=== PATIENT | female | born 1980 | race Two or more races ===

== ENCOUNTER 2019-12-03 11:42 | Emergency (ER) | payer MEDICAID, OTHER ==
[~2019-12-03] VITALS: Ht 152.4 cm; Wt 76.7 kg
[2019-12-03 11:54] VITALS: BP 105/55
[2019-12-03 12:54] LABS: Basophils # (auto) 0 uL; Basophils % (auto) 0.3 % (0.0-2.0); Eosinophils # (auto) 0.1 uL; Monocytes # (auto) 0.4 uL; Nucleated Red Blood Cells % 0.1 %
[2019-12-03 12:56] LABS: Eosinophils % (auto) 2.1 % (0.0-7.0); Hematocrit 37.8 % (36.0-46.0); Hemoglobin 12.2 g/dL (12.2-16.2); Lymphocytes # (auto) 1.2 uL; Mean Corpuscular Hemoglobin 25.3 pg (28.0-32.0); Mean Corpuscular Hgb Conc. 32.3 g/dL (32.0-36.0); Mean Corpuscular Volume 78.2 fL (80.0-100.0); Monocytes % (auto) 6.4 % (0.0-12.0); Neutrophils # (auto) 4.5 uL; Neutrophils % (auto) 72.2 % (37.0-80.0); Platelet Count (auto) 292 10^3/uL (140-450); Red Blood Cells 4.84 10^6/uL (4.0-5.20); Red Cell Distribution Width 14.8 % (11.8-14.3); White Blood Cell 6.3 10^3/uL (4.4-10.8)
[2019-12-03 13:24] LABS: Albumin 3.4 g/dL (3.4-5.0); BUN/Creatinine Ratio 12.5; Calcium 8.8 mg/dL (8.5-10.1); Potassium 3.7 mmol/L (3.5-5.1)
[2019-12-03 13:27] LABS: Bilirubin, Total 0.2 mg/dL (0.2-1.0); Total Protein 7.6 g/dL (6.4-8.2)
[2019-12-03 13:39] LABS: Urine Bacteria NONE SEEN /hpf (None Seen); Urine Blood 2+ /uL (Negative); Urine Specific Gravity 1.024 (1.001-1.035); Urine WBC 159 /hpf (0 - 5); Urine WBC Clumps PRESENT /hpf (None Seen)
== END 2019-12-03 16:21 | disposition home or self-care (01) ==
LOC: ER 11:42
DX: N39.0 Urinary tract infection, site not specified (principal); N93.8 Other specified abnormal uterine and vaginal bleeding; R10.2 Pelvic and perineal pain; J45.909 Unspecified asthma, uncomplicated
CPT/HCPCS: 36415; 76830; 76856; 80053; 81001; 84702; 85025

== ENCOUNTER 2023-03-10 10:51 | Emergency (ER) | payer MEDICAID ==
[~2023-03-10] VITALS: Ht 152.4 cm; Wt 79.4 kg
[2023-03-10 11:29] LABS: Basophils # (auto) 0 10 ^3/uL (0-0.2); Basophils % (auto) 0.3 % (0.0-2.0); Eosinophils # (auto) 0.1 10 ^3/uL (0-0.8); Eosinophils % (auto) 2.2 % (0.0-7.0); Hematocrit 44.4 % (36.0-46.0); Hemoglobin 14.8 g/dL (12.2-16.2); Lymphocytes # (auto) 1.5 10 ^3/uL (0.4-5.4); Lymphocytes % (auto) 24.1 % (10.0-50.0); Mean Corpuscular Hemoglobin 28.1 pg (28.0-32.0); Mean Corpuscular Hgb Conc. 33.4 g/dL (32.0-36.0); Mean Corpuscular Volume 84.2 fL (80.0-100.0); Monocytes # (auto) 0.3 10 ^3/uL (0-1.3); Monocytes % (auto) 4.2 % (0.0-12.0); Neutrophils # (auto) 4.4 10 ^3/uL (1.6-8.6); Neutrophils % (auto) 69.2 % (37.0-80.0); Nucleated Red Blood Cells % 0.1 %; Red Blood Cells 5.28 10^6/uL (4.0-5.20); Red Cell Distribution Width 12.3 % (11.8-14.3); White Blood Cell 6.4 10^3/uL (4.4-10.8)
[2023-03-10 11:54] LABS: Albumin 3.7 g/dL (3.4-5.0); Calcium 8.1 mg/dL (8.5-10.1); Potassium 4.1 mmol/L (3.5-5.1)
[2023-03-10 11:58] LABS: BUN/Creatinine Ratio 14.3 (10.0-20.0); Bilirubin, Total 0.3 mg/dL (0.2-1.0); Total Protein 7.8 g/dL (6.4-8.2)
[2023-03-10 12:48] LABS: Urine Bacteria FEW /hpf (None Seen); Urine Blood Negative /uL (Negative); Urine Mucus FEW (None Seen); Urine Specific Gravity 1.025 (1.001-1.035); Urine WBC <1 /hpf (0 - 5)
[2023-03-10] MEDS ORDERED: KETOROLAC TROMETH 30 MG/ML 1ML VIAL IM ONE ×2 (14:00→14:30)
[2023-03-10 14:06] VITALS: BP 120/74
== END 2023-03-10 14:31 | disposition home or self-care (01) ==
LOC: ER 10:51
DX: N83.299 Other ovarian cyst, unspecified side (principal); R22.9 Localized swelling, mass and lump, unspecified; R10.32 Left lower quadrant pain; J45.909 Unspecified asthma, uncomplicated; R10.2 Pelvic and perineal pain; Z98.890 Other specified postprocedural states
CPT/HCPCS: 36415; 74176; 76856; 80053; 81001; 83605; 83690; 84702; 85025; 87086; 96372; 99285; J1885

== ENCOUNTER 2023-06-14 08:04 | Emergency (ER) | payer MEDICAID ==
[~2023-06-14] VITALS: Ht 152.4 cm; Wt 68.7 kg
[2023-06-14 08:54] LABS: Alanine Aminotransferase 16 U/L (7-40); Alkaline Phosphatase 84 U/L (46-116); Anion Gap 6.8 (5-15); Aspartate Aminotransferase 10 U/L (13-40); BUN/Creatinine Ratio 15.7 (10.0-20.0); Bilirubin, Total 0.7 mg/dL (0.2-1.0); Blood Urea Nitrogen 11 mg/dL (9-23); Calcium 9.2 mg/dL (8.5-10.1); Carbon Dioxide 24.2 mmol/L (20-30); Chloride 106 mmol/L (98-107); Glucose 113 mg/dL (74-106); Potassium 4.5 mmol/L (3.5-5.1); Sodium 137 mmol/L (136-145); Total Protein 7.9 g/dL (5.7-8.2)
[2023-06-14] MEDS ORDERED: SODIUM CHLORIDE 0.9% 1,000 ML IVB ONE (09:00)
[2023-06-14] MEDS ORDERED: ONDANSETRON HCL 4 MG/2 ML VIAL IV ONE (09:00)
[2023-06-14 09:32] LABS: Hematocrit 46.3 % (36.0-46.0); Hemoglobin 15.6 g/dL (12.2-16.2); Mean Corpuscular Hemoglobin 28.7 pg (28.0-32.0); Mean Corpuscular Hgb Conc. 33.6 g/dL (32.0-36.0); Mean Corpuscular Volume 85.5 fL (80.0-100.0); Red Blood Cells 5.42 10^6/uL (4.0-5.20); Red Cell Distribution Width 12.8 % (11.8-14.3); White Blood Cell 9.6 10^3/uL (4.4-10.8)
[2023-06-14 09:39] LABS: Band Neutrophils % (manual) 0; Basophils % (manual) 0 (0.0-2.0); Blast Cells 0; Eosinophils % (manual) 0 (0-7); Metamyelocytes % 0; Myelocytes % 0; Promyelocytes % 0; Reactive Lymphocytes 0
[2023-06-14 10:20] VITALS: BP 124/74; PULSE 78; RESP 15; TEMP 98; O2SAT 99
[2023-06-14 10:24] LABS: Urine Bacteria NONE SEEN /hpf (None Seen); Urine Blood 2+ /uL (Negative); Urine Clarity HAZY (Clear); Urine Color Yellow (Yellow); Urine Hyaline Cast FEW /lpf (0 - 2); Urine Mucus FEW (None Seen); Urine Protein, UAD 1+ (Negative); Urine Specific Gravity 1.024 (1.001-1.035); Urine Urobilinogen Normal (Negative); Urine WBC 1 /hpf (0 - 5); Urine pH 5.5 (5.0-8.0)
[2023-06-14 11:16] LABS: Lymphocytes % (manual) 2 (10.0-50.0); Monocytes % (manual) 4 (0-12)
[2023-06-14 11:17] LABS: Platelet Estimate Adequate
[2023-06-14] MEDS ORDERED: METO-281 PO (13:26)
[2023-06-14] MEDS ORDERED: BACDST PO (13:26)
== END 2023-06-14 11:27 | disposition home or self-care (01) ==
LOC: ER 08:04
DX: A05.9 Bacterial foodborne intoxication, unspecified (principal); N39.0 Urinary tract infection, site not specified; J45.909 Unspecified asthma, uncomplicated
CPT/HCPCS: 36415; 80053; 81001; 85007; 85027; 96361; 96374; 99283; J2405; J7030

== ENCOUNTER 2024-09-03 14:47 | Emergency (ER) | payer MEDICAID ==
[~2024-09-03] VITALS: Ht 152.4 cm; Wt 73.0 kg
[~2024-09-03 14:47] MED LIST: BACDST PO; METO-281 PO
[2024-09-03 16:16] LABS: Basophils # (auto) 0 10 ^3/uL (0-0.2); Eosinophils # (auto) 0 10 ^3/uL (0-0.8); Eosinophils % (auto) 0.1 % (0.0-7.0); Lymphocytes # (auto) 0.6 10 ^3/uL (0.4-5.4); Monocytes # (auto) 0.3 10 ^3/uL (0-1.3)
[2024-09-03 16:19] LABS: Basophils % (auto) 0.1 % (0.0-2.0); Hematocrit 51.5 % (36.0-46.0); Hemoglobin 17.9 g/dL (12.2-16.2); Lymphocytes % (auto) 5.6 % (10.0-50.0); Mean Corpuscular Hemoglobin 29.8 pg (28.0-32.0); Mean Corpuscular Hgb Conc. 34.8 g/dL (32.0-36.0); Mean Corpuscular Volume 85.6 fL (80.0-100.0); Monocytes % (auto) 2.9 % (0.0-12.0); Neutrophils # (auto) 9.4 10 ^3/uL (1.6-8.6); Neutrophils % (auto) 91.3 % (37.0-80.0); Nucleated Red Blood Cells % 0.2 %; Platelet Count (auto) 301 10^3/uL (140-450); Red Blood Cells 6.02 10^6/uL (4.0-5.20); Red Cell Distribution Width 12.6 % (11.8-14.3); White Blood Cell 10.3 10^3/uL (4.4-10.8)
[2024-09-03 16:35] LABS: Alanine Aminotransferase 18 U/L (7-40); Albumin 4.6 g/dL (3.2-4.8); Alkaline Phosphatase 76 U/L (46-116); Anion Gap 7 (5-15); Aspartate Aminotransferase 14 U/L (13-40); BUN/Creatinine Ratio 11.3 (10.0-20.0); Bilirubin, Total 0.9 mg/dL (0.2-1.0); Blood Urea Nitrogen 9 mg/dL (9-23); Calcium 9.7 mg/dL (8.7-10.4); Carbon Dioxide 28 mmol/L (20-31); Chloride 107 mmol/L (98-107); Glucose 97 mg/dL (74-106); Lipase 39 U/L (12-53); Potassium 4.6 mmol/L (3.5-5.1); Sodium 142 mmol/L (136-145); Total Protein 6.4 g/dL (5.7-8.2)
[2024-09-03 16:56] LABS: Amphetamine Screen, Urine Neg (NEGATIVE); Benzodiazephine Screen, Urine Neg (NEGATIVE)
[2024-09-03 16:57] LABS: Barbiturate Scree,Urine Neg (NEGATIVE); Cannabinoid Screen, Urine Neg (NEGATIVE); Cocaine Screen, Urine Neg (NEGATIVE); Opiate Scree,Urine Neg (NEGATIVE); Phencyclidine Screen, Urine Neg (NEGATIVE)
[2024-09-03 16:58] LABS: Urine Bacteria FEW /hpf (None Seen); Urine Blood TRACE /uL (Negative); Urine Clarity Turbid (Clear); Urine Color Yellow (Yellow); Urine Mucus FEW (None Seen); Urine Protein, UAD 1+ (Negative); Urine Specific Gravity 1.029 (1.001-1.035); Urine Urobilinogen Normal (Negative); Urine WBC 1 /hpf (0 - 5); Urine pH 6.5 (5.0-9.0)
--- NOTE | 2024-09-03 18:11 | DVH ---
Exam: CT CT AB PEL WO CON-NO ORAL OR IV History: abd pain n/v Comparison Study: None available at time of dictation. TECHNIQUE: Multidetector CT of the abdomen was performed from lung bases to pubic symphysis. Imaging was performed without IV contrast. Axial, coronal and sagittal multiplanar reformats were obtained fr om the axial data set by the technologist. Radiation Dose Information: CT Dose: CTDI volume is 11.22 mGy. Dose-length product is 531.33 mGy*cm FINDINGS: Evaluation of solid organs is limited due to lack of intravenous contrast use. Findings: Lung Bases: No acute or significant lung base finding. Normal heart size. No pleural or pericardial effusion. Liver: The liver is normal in size. No focal lesions. Gallbladder and Biliary Tree: Gallbladder has been surgically removed. Spleen: Unremarkable Pancreas: The pancreas is grossly normal in appearance. Adrenal Glands: Unremarkable Kidneys: Kidneys are grossly normal without calculi or hydronephrosis. Bladder: Grossly unremarkable for degree of distention. Bowel: The stomach is grossly normal in appearance. Small bowel and colon are normal in caliber and d istribution. The appendix is not visualized; however, no secondary findings of acute appendicitis id entified. Ascites: Absent Lymphadenopathy: No mesenteric, retroperitoneal or periportal lymphadenopathy. Abdominal Wall and Mesentery: Unremarkable. Vasculature: The visualized abdominal aorta is normal in size and caliber. Evaluation of abdominal a nd pelvic vessels is limited due to lack of intravenous contrast. Pelvic Organs: Unremarkable Musculoskeletal: No aggressive focal bony lesions, acute fractures or dislocation. Soft tissues: Unremarkable IMPRESSION: 1. No acute abdominal or pelvic finding. 2. Gallbladder has been surgically removed. 3. No CT findings of bowel obstruction. 4. No nephrolithiasis or hydronephrosis. HS:Y Radiation optimization: All CT scans at this facility use at least one of these dose optimization chloé hniques: automated exposure control mA and/or kV adjustment per patient size (includes targeted exam s where dose is matched to clinical indication) or iterative reconstruction.
--- NOTE | 2024-09-03 18:26 | ED.PDOC ---
GI ASSESSMENT HPI Comments This patient is a pleasant but morbidly obese 44-year-old female who arrives to the ED today with complaints of nausea, vomiting and diarrhea that began this morning has continued throughout the day. Patient denies any recent travel or new food sources. Patient states the symptoms came on and has been recurring throughout the day. Patient denies any fever. Vital signs were remarkable for mild tachycardia at arrival. Patient denies any history of intra-abdominal concerns. Chief Complaint: Nausea/Vomiting Time Seen by MD: 15:22 Primary Care Provider: Robert Reviewed Notes: Nurses Notes Allergies: Coded Allergies: NO KNOWN ALLERGIES (Unverified , 12/03/19) Home Meds Active Scripts Sulfamethoxazole W/Trimethopri (Bactrim Ds Tablet) 1 Tab Tb, 1 TAB PO BID for 7 Days, #14 TAB Prov:KIESHA CAVAZOS MD 06/14/23 Metoclopramide Hcl (Reglan) 10 Mg Tab, 10 MG PO BID PRN for 5 Days, #10 TAB Prov:KIESHA CAVAZOS MD 06/14/23 Information Source: Patient, Friend Mode of Arrival: Ambulatory Timing: Hours Duration: Since onset Prehospital treatment: None Quality: Cramping, Sharp Vomitus: Bilious, Food Particles, Soft, Watery Stool: Moderate, Loose, Watery, Brown Severity: Moderate Recent: None Recent Hx of: None Pain Location: Diffuse, Epigastric, Periumbilical Modifying Factors: Food Associated sign and symptoms: Nausea, Vomiting, Diarrhea, Abdominal Pain Past Medical History PAST MEDICAL HISTORY: Asthma Surgical History: [employer] History: No Pertinent [employer] History Family History Family History: Reviewed,noncontributory to illness Social History Smoker: Non-Smoker Alcohol: Occasionally Drugs: Denies Drug Use Lives In: Home Constitutional: denies: chills, diaphoresis, fatigue, fever, malaise, sweats, weakness, others EENTM: denies: blurred vision, double vision, ear bleeding, ear discharge, ear drainage, ear pain, ear ringing, eye pain, eye redness, hearing loss, mouth pain, mouth swelling, nasal discharge, nose bleeding, nose congestion, nose pain, photophobia, tearing, throat pain, throat swelling, voice changes, others Respiratory: denies: cough, hemoptysis, orthopnea, SOB at rest, shortness of breath, SOB with excertion, stridor, wheezing, others Cardiovascular: denies: chest pain, dizzy spells, diaphoresis, Dyspnea on exertion, edema, irregular heart beat, left arm pain, lightheadedness, palpitations, PND, syncope, others Gastrointestinal: reports: abdominal pain, diarrhea, nausea, vomiting; denies: abdomen distended, blood streaked bowels, constipated, dysphagia, difficulty swallowing, hematemesis, melena, poor appetite, poor fluid intake, rectal bleeding, rectal pain, others Genitourinary: denies: abnormal vagina bleeding, burning, dyspareunia, dysuria, flank pain, frequency, hematuria, incontinence, pain, , vagina discha rge, urgency, others Neurological: denies: dizziness, fainting, headache, left sided numbness, left sided weakness, numbness, paresthesia, pre-existing deficit, right sided numbness, right sided weakness, seizure, speech problems, tingling, tremors, weakness, others Musculoskeletal: denies: back pain, gout, joint pain, joint swelling, muscle pain, muscle stiffness, neck pain, others Integumetry: denies: bruises, change in color, change in hair/nails, dryness, laceration, lesions, lumps, rash, wounds, others Allergic/Immunocompromised: denies: Difficulty Healing, Frequent Infections, Hives, Itching, others Hematologic/Lymphatic: denies: anemia, blood clots, easy bleeding, easy bruising, swollen glands, others Endocrine: denies: excessive hunger, excessive sweating, excessive thirst, excessive urination, flushing, intolerance to cold, intolerance to heat, unexplained weight gain, unexplained weight loss, others Psychiatric: denies: anxiety, bipolar disorder, depression, hopeless, panic disorder, schizophrenia, sleepless, suicidal, others Physical Exam General Appearance: Moderate Distress ([id number] distress due to abdominal pain and nausea concerns.), Obese HEENT: Normal ENT Inspection, Pharynx Normal, TMs Normal Neck: Full Range of Motion, Non-Tender, Normal, Normal Inspection Respiratory: Chest Non-Tender, Lungs Clear, No Accessory Muscle Use, No Respiratory Distress, Normal Breath Sounds Cardiovascular: No Edema, No JVD, No Murmur, No Gallop, Normal Peripheral Pulses, Regular Rate/Rhythm Breast Exam: Deferred Gastrointestinal: No Pulsatile Mass, Normal Bowel Sounds, Soft, Other (Diffuse periumbilical and epigastric tenderness to palpation that is nonspecific. No pulsatile masses. No signs of trauma. Difficult to assess due to body habitus.) Genitalia: Deferred Pelvic: Deferred Rectal: Deferred Extremities: No calf tenderness, Normal capillary refill, Normal inspection, Normal range of motion, Non-tender, No pedal edema Neurologic: Alert, senior net developer architect II-XII nml as Tested, No Motor Deficits, Normal Affect, Normal Mood, No Sensory Deficits Cerebellar Function: Normal Reflexes: Normal Skin: Dry, Normal Color, Warm Lymphatic: No Adenopathy Was a procedure done? Was a procedure done?: No GI differential Dx Differential Diagnosis: Cholangitis, Cholecystitis, Diverticular disease, Gastritis/PUD, Gastroenteritis, Inflammatory BD, Pancreatitis, UTI X-Ray, Labs, Meds, VS Vital Signs Date Time Temp Pulse Resp B/P (MAP) Pulse Ox O2 Delivery O2 Flow Rate FiO2 09/03/24 15:02 98.2 126 18 126/84 (98) 97 Lab Test 09/03/24 15:50 09/03/24 13:00 Range/Units White Blood Count 10.3 4.4-10.8 10^3/uL Red Blood Count 6.02 H 4.0-5.20 10^6/uL Hemoglobin 17.9 H 12.2-16.2 g/dL Hematocrit 51.5 H 36.0-46.0 % Mean Corpuscular Volume 85.6 80.0-100.0 fL Mean Corpuscular Hemoglobin 29.8 28.0-32.0 pg Mean Corpuscular Hemoglobin Concent 34.8 32.0-36.0 g/dL Red Cell Distribution Width 12.6 11.8-14.3 % Platelet Count 301 140-450 10^3/uL Mean Platelet Volume 8.1 6.9-10.8 fL Neutrophils (%) (Auto) 91.3 H 37.0-80.0 % Lymphocytes (%) (Auto) 5.6 L 10.0-50.0 % Monocytes (%) (Auto) 2.9 0.0-12.0 % Eosinophils (%) (Auto) 0.1 0.0-7.0 % Basophils (%) (Auto) 0.1 0.0-2.0 % Neutrophils # (Auto) 9.4 H 1.6-8.6 10 ^3/uL Lymphocytes # (Auto) 0.6 0.4-5.4 10 ^3/uL Monocytes # (Auto) 0.3 0-1.3 10 ^3/uL Eosinophils # (Auto) 0 0-0.8 10 ^3/uL Basophils # (Auto) 0 0-0.2 10 ^3/uL Nucleated Red Blood Cells 0.2 % Sodium Level 142 136-145 mmol/L Potassium Level 4.6 3.5-5.1 mmol/L Chloride Level 107 98-107 mmol/L Carbon Dioxide Level 28 20-31 mmol/L Anion Gap 7 5-15 Blood Urea Nitrogen 9 9-23 mg/dL Creatinine 0.80 0.550-1.02 mg/dL Glomerular Filtration Rate Calc 93 >90 mL/min BUN/Creatinine Ratio 11.3 10.0-20.0 Serum Glucose 97 74-106 mg/dL Lactic Acid Level 1.2 0.4-2.0 mmol/L Calcium Level 9.7 8.7-10.4 mg/dL Total Bilirubin 0.9 0.2-1.0 mg/dL Aspartate Amino Transferase (AST) 14 13-40 U/L Alanine Aminotransferase (ALT) 18 7-40 U/L Alkaline Phosphatase 76 46-116 U/L Troponin I High Sensitivity < 3 L </=34 ng/L Total Protein 6.4 5.7-8.2 g/dL Albumin 4.6 3.2-4.8 g/dL Lipase 39 12-53 U/L Beta HCG, Quantitative 1.4 L 1.5-4.2 mIU/mL Urine Color Yellow Yellow Urine Clarity Turbid H Clear Urine pH 6.5 5.0-9.0 Urine Specific [place] 1.029 1.001-1.035 Urine Protein 1+ H Negative Urine Ketones 3+ H Negative Urine Blood Trace H Negative /uL Urine Nitrite Negative Negative Urine Bilirubin Negative Negative Urine Urobilinogen Normal Negative mg/dL Urine Leukocyte Esterase Negative Negative /uL Urine RBC 5 0 - 4 /hpf Urine WBC 1 0 - 5 /hpf Urine Squamous Epithelial Cells Few <5 /hpf Urine Bacteria Few H None Seen /hpf Urine Mucus Few None Seen Urine Glucose Normal Normal mg/dL Urine Opiates Screen Neg NEGATIVE Urine Fentanyl Screen Neg NEGATIVE Urine Barbiturates Screen Neg NEGATIVE Urine Phencyclidine Screen Neg NEGATIVE Urine Amphetamines Screen Neg NEGATIVE Urine Benzodiazepines Screen Neg NEGATIVE Urine Cocaine Screen Neg NEGATIVE Urine Cannabinoids Screen Neg NEGATIVE X-Ray, Labs, Meds, VS Comment All studies performed the ED today were evaluated by me personally. Laboratories were unremarkable for any acute systemic process. Urine was unremarkable for urinary tract infection. CT of the abdomen was unremarkable for any acute abdominal or pelvic findings. Gallbladder has been removed. Radiology concurred with my assessment. Patient seems to be suffering from a gastroenteritis event. Advised patient utilize medication as needed for symptomatic relief as well as good hydration and healthy nutrition throughout illness event. Time of 1ST Reevaluation: 18:31 Reevaluation 1ST: Improved Consultation: PCP Patient Education/Counseling: Diagnosis, Treatment Family Education/Counseling: Diagnosis, Treatment Departure 1 Departure Time of Disposition: 18:33 Impression: Primary Impression: Viral gastroenteritis Disposition: HOME / SELF CARE / HOMELESS Condition: Stable Additional Instructions: Advised patient utilize medication as needed for symptomatic relief as well as good hydration and healthy nutrition throughout illness event. e-Prescriptions Acetaminophen (Acetaminophen) 500 Mg Tab 500 MG PO Q4HP PRN, #30 TAB Prov: YANI LEWIS [facility] 09/03/24 Ondansetron Odt 4MG Tab (ZOFRAN PO) 4 Mg Tb 4 MG PO Q6HP PRN, #20 TAB ODT TAB-DISSOLVE IN MOUTH, THEN SWALLOW Prov: YANI LEWIS [facility] 09/03/24 Dicyclomine Hcl (BENTYL CAPSULE) 10 Mg Cp 1 CAP PO Q6HPRN, #20 CAP 0 Refills Prov: YANI LEWIS [facility] 09/03/24 Discharged With: Self, Friend Critical Care Note Critical Care Time?: No Stability Stability form required: No Heart Score Heart Score: Heart Score Response (Comments) Value History N/A 0 EKG Repolarization Disturb 1 Age <45 0 Risk Factors 1 or 2 risk factors 1 Troponin Normal limit 0 Total 2 YANI LEWIS [facility] Sep 03, 2024 18:26
[2024-09-03] MEDS ORDERED: DICY10CA PO (18:34)
[2024-09-03] MEDS ORDERED: ACET500T58 PO (18:34)
[2024-09-03] MEDS ORDERED: ZOFR4T PO (18:34)
[2024-09-03] MEDS: ONDANSETRON ODT 4 MG TAB PO ONE (20:39)
[2024-09-03] MEDS: DICYCLOMINE HCL (10MG/ML) 2 ML AMPULE IM ONE (20:39)
[2024-09-03 20:49] VITALS: PULSE 74; RESP 16; O2SAT 97
[2024-09-03 21:00] VITALS: BP 124/87; PULSE 99; RESP 18; TEMP 98; O2SAT 98
== END 2024-09-03 21:00 | disposition home or self-care (01) ==
LOC: ER 14:50
DX: A08.4 Viral intestinal infection, unspecified (principal); R10.2 Pelvic and perineal pain; J45.909 Unspecified asthma, uncomplicated; Z79.899 Other long term (current) drug therapy; Z98.890 Other specified postprocedural states
CPT/HCPCS: 36415; 74176; 80053; 80307; 81001; 83605; 83690; 84484; 84702; 85025; 96372; 99285; J0500; Q0162